=== PATIENT | male | born 1985 ===

== ENCOUNTER 2022-04-23 16:33 | Emergency (ER) | payer OTHER ==
[2022-04-23] MEDS ORDERED: Ibuprofen 600 MG Tab PO ONE (22:56)
[2022-04-24 00:57] VITALS: BP 152/84; PULSE 83
== END 2022-04-23 23:10 | disposition home or self-care (01) ==
LOC: MW.ED 16:33
DX: S49.91XA Unspecified injury of right shoulder and upper arm, initial encounter (principal); E11.9 Type 2 diabetes mellitus without complications; Z79.84 Long term (current) use of oral hypoglycemic drugs; X50.9XXA Other and unspecified overexertion or strenuous movements or postures, initial encounter; Y99.0 Civilian activity done for income or pay
CPT/HCPCS: 73030; 99284; A9270; 99282